=== PATIENT | male | born 2000 | race Caucasian/White ===

== ENCOUNTER 2018-11-07 06:53 | Emergency (ER) | payer OTHER ==
[~2018-11-07] VITALS: Ht 165.1 cm; Wt 67.1 kg
[2018-11-07 07:14] VITALS: Ht 165.1 cm; Wt 67.1 kg
[2018-11-07 08:33] VITALS: BP 132/78
== END 2018-11-07 08:33 | disposition home or self-care (01) ==
LOC: ED 06:53
DX: R10.30 Lower abdominal pain, unspecified (principal); J45.909 Unspecified asthma, uncomplicated